=== PATIENT | male | born 1995 | race American Indian/Alaskan Native ===

== ENCOUNTER 2020-03-30 20:14 | Emergency (ER) | payer MEDICAID, OTHER ==
--- NOTE | 2020-03-30 21:58 | XRay Report ---
LEFT FOOT, 3 VIEWS 03/30/2020 INDICATION / CLINICAL INFORMATION: MAIN: pain/swelling; Right foot pain, Pt stated he dropped a speaker on his foot today. COMPARISON: None available. FINDINGS: No fracture or dislocation. Signer Name: Sigifredo Sullivan MD Signed: 03/30/2020 9:53 PM Workstation Name: [id number]
--- NOTE | 2020-03-30 22:29 | Emergency Department Report ---
ED Lower Extremity HPI - General Chief Complaint: Extremity Injury, Lower Stated Complaint: RIGHT FOOT PAIN Time Seen by Provider: 03/30/20 22:04 Source: patient Mode of arrival: Ambulatory Limitations: No Limitations - History of Present Illness MD Complaint: foot injury -: Gradual Injury: Foot: Right Type of Injury: blunt (Accidental contusion crush injury by a speaker that fell on his right foot earlier today around 1:00) Place: home Severity: mild, moderate Context: direct blow Associated Symptoms: swelling, able to partially bear weight. denies: unable to bear weight - Related Data Allergies Allergy/AdvReac Type Severity Reaction Status Date / Time No Known Allergies Allergy Unverified 03/30/20 21:14 ED Review of Systems ROS: Stated complaint: RIGHT FOOT PAIN Other details as noted in HPI Comment: All other systems reviewed and negative ED Past Medical Hx - Past Medical History Previous Medical History?: Yes Hx Sickle Cell Disease: Yes - Surgical History Past Surgical History?: Yes Hx Cholecystectomy: Yes - Social History Smoking Status: Never Smoker Substance Use Type: None ED Physical Exam - General Limitations: No Limitations General appearance: alert, in no apparent distress - Head Head exam: Present: atraumatic, normocephalic - Eye Eye exam: Present: normal appearance - ENT ENT exam: Present: mucous membranes moist - Neck Neck exam: Present: normal inspection - Respiratory Respiratory exam: Present: normal lung sounds bilaterally. Absent: respiratory distress - Cardiovascular Cardiovascular Exam: Present: regular rate, normal rhythm. Absent: systolic murmur, diastolic murmur, rubs, gallop - GI/Abdominal GI/Abdominal exam: Present: soft, normal bowel sounds - Rectal Rectal exam: Present: deferred - Extremities Exam Extremities exam: Present: normal inspection, tenderness, normal capillary refill. Absent: pedal edema, calf tenderness - Expanded Lower Extremity Exam Right Foot/Toe exam: Present: tenderness (To the midfoot region with palpation.) Neuro vascular tendon exam: Present: no vascular compromise - Back Exam Back exam: Present: normal inspection - Neurological Exam Neurological exam: Present: alert, oriented X3 - Psychiatric Psychiatric exam: Present: normal affect, normal mood - Skin Skin exam: Present: warm, dry, intact, normal color. Absent: rash ED Course Vital Signs 03/30/20 21:11 Temperature 98.3 F Pulse Rate 71 Respiratory 18 Rate Blood Pressure 110/70 O2 Sat by Pulse 97 Oximetry Critical care attestation.: If time is entered above; I have spent that time in minutes in the direct care of this critically ill patient, excluding procedure time. ED Disposition Clinical Impression: Contusion of foot, right Disposition: DC-01 TO HOME OR SELFCARE Is pt being admited?: No Does the pt Need Aspirin: No Condition: Stable Instructions: Foot Contusion (ED), Ice Pack Application (ED), RICE Therapy (ED) Referrals: FIDE MOORE MD [Primary Care Provider] - 3-5 Days
[2020-03-30 22:41] VITALS: BP 108/70
== END 2020-03-30 22:41 | disposition home or self-care (01) ==
LOC: ED 20:14
DX: S90.31XA Contusion of right foot, initial encounter (principal); D57.1 Sickle-cell disease without crisis; Z90.49 Acquired absence of other specified parts of digestive tract; W20.8XXA Other cause of strike by thrown, projected or falling object, initial encounter; Y93.89 Activity, other specified; Y92.009 Unspecified place in unspecified non-institutional (private) residence as the place of occurrence of the external cause; Y99.8 Other external cause status